=== PATIENT | female | born 2000 | race Two or more races ===

== ENCOUNTER 2025-02-23 10:25 | Observation (INO) | payer MEDICAID ==
--- NOTE | 2025-02-23 11:36 | DVH ---
BIOPHYSICAL PROFILE HISTORY: post dates TECHNIQUE: Multiple transabdominal real-time grayscale sonographic images through the gravid uterus of the fetus with duplex Doppler color flow and M-mode spectral analysis FINDINGS: BIOPHYSICAL PROFILE: breathing score: 2 movement score: 2 tone score: 2 Quantitative ASHLEY score: 2 (ASHLEY: 19.4 Cm.) Total score: 8 The cervix not well visualized. Single live fetus in cephalic presentation. heart rate 125 beats per minute. Grade 3 posterior placenta without previa or abruption IMPRESSION: Biophysical profile score: 8
[2025-02-23] MEDS ORDERED: PREN1TAB71 OR (12:42)
--- NOTE | 2025-02-23 12:44 | DVHDS2 ---
Physician Discharge Progress N Final Diagnosis: gdm 40wks Operations or Procedures: Operations or Procedures nst preston kruger Condition on Discharge: Good Disposition: Home Discharge Instructions: Diet: Consistent carbohydrate Activity: No Restrictions, As Tolerated Medications: na Follow Up Care: Specialist: fu 1 day for induction Discharge Statement: "Patient was advised to return to the ER or call 911 if any headaches, dizziness, shortness of breath, chest pain, abdominal pain, bleeding, fevers, or worsening of medical condition. Patient was counseled about treatment plan, medications, possible side effects, patientverbalized understanding. All questions were answered to the best of my ability. This discharge took greater then 30 minutes in planning, reviewing documentation, counseling the patient, and discussing with other team members." Visit Coding OBGYN Date of Service: Feb 23, 2025 Billing Provider: MIKAL PERDOMO DO [employer] Common Visit Codes: 44239-[id number] OBS CARE (HIGH) [employer] Procedure Codes: 66702-93- NON-STRESS TEST MIKAL PERDOMO DO Feb 23, 2025 12:44
== END 2025-02-23 13:00 | disposition home or self-care (01) ==
LOC: LDRP 10:25 → UNDOADMOB 10:25 → LDRP 11:02
PROVIDERS: ADMIT Obstetrics & Gynecology; ATTEND Obstetrics & Gynecology
DX: O24.419 Gestational diabetes mellitus in pregnancy, unspecified control (principal); Z3A.40 40 weeks gestation of pregnancy; Z98.890 Other specified postprocedural states; Z79.899 Other long term (current) drug therapy
CPT/HCPCS: 59025; 76819; 81002; 94760; G0378